=== PATIENT | female | born 2005 | race Hispanic/Latino ===

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

== ENCOUNTER 2025-08-03 11:32 | Emergency (ER) | payer OTHER, SELFPAY ==
[2025-08-03 11:33] VITALS: BP 126/81; PULSE 87; RESP 18; TEMP 36.4; O2SAT 99
[2025-08-03 12:09] LABS: Strep Group A RT-PCR NOT DETECTED (Negative)
[2025-08-03 12:21] VITALS: BP 114/82; PULSE 72; RESP 17; O2SAT 100
[2025-08-03 12:21] LABS: Influenza A QL RT-PCR Negative (Negative); Influenza B QL RT-PCR Negative (Negative); RSV RNA, RT-PCR Negative (Negative); SARS-CoV-2 RNA PCR Negative (Negative)
[2025-08-03 14:42] LABS: Negative Monotest Control Negative (Negative); Positive Monotest Control Positive (Positive)
[2025-08-03 15:00] VITALS: BP 110/80; PULSE 64; RESP 16; O2SAT 100
--- NOTE | 2025-08-03 15:07 | ED.GENADULT ---
HPI - General Adult General Chief complaint: Upper Respiratory Infection Stated complaint: throat pain and swelling, headache, earache Time Seen by Provider: 08/03/25 12:46 History of Present Illness HPI narrative: 20-year-old female present to the emergency department for evaluation for worsening sore throat. Patient reports symptoms started on Thursday have been worsening. Patient does report associated generalized fatigue. Patient does have some anterior lymphadenopathy with this. Patient denies any difficulty breathing or swallowing. Related Data Allergies Allergy/AdvReac Type Severity Reaction Status Date / Time No Known Allergies Allergy Verified 08/03/25 15:17 Review of Systems Review of Systems: All systems reviewed & are unremarkable except as noted in HPI and below PMFSH Surgical History Surgical History (Updated 10/15/21 @ 10:18 by Mila German APRN) S/P hernia surgery H/O heart surgery Social History Social History (Updated 10/15/21 @ 10:19 by Mila German APRN) Living arrangements: with family Occupation/Education: student Gender identity (if verbalized by the patient): Female Exam Narrative: APPEARANCE: Well appearing, no pain, no distress, well-nourished. HEAD: normocephalic, atraumatic. EYES: PERRLA/EOMI, conjunctivae clear. NOSE: Normal no drainage EARS:TMS clear with good light reflex. THROAT: Bilateral enlarged tonsils that are non kissing, normal posterior pharynx, some tonsillar exudate NECK: Supple. No adenopathy, no masses. RESPIRATORY: Airway patent, respirations nonlabored. Clear to auscultation bilaterally, no rales, rhonchi, wheezing. CARDIOVASCULAR: Regular rate and rhythm without murmurs rubs or gallops. ABDOMINAL: Soft, nontender, nondistended, normal bowel sounds MUSCULOSKELETAL: Moves all extremities. Strength/ROM intact, No edema, No calf tenderness. NEURO: Alert. Cranial nerves II through XII intact. Good gait. Good coordination SKIN: Warm, dry. Normal Color Course Vital Signs Vital signs: Vital Signs Temperature 97.6 F 08/03/25 11:33 Pulse Rate 87 08/03/25 11:33 Respiratory Rate 18 08/03/25 11:33 Blood Pressure 126/81 08/03/25 11:33 Pulse Oximetry 99 08/03/25 11:33 Oxygen Delivery Room Air 08/03/25 11:33 Temperature 97.6 F 08/03/25 11:33 Pulse Rate 64 08/03/25 15:00 Respiratory Rate 16 08/03/25 15:00 Blood Pressure 110/80 08/03/25 15:00 Pulse Oximetry 100 08/03/25 15:00 Oxygen Delivery Room Air 08/03/25 12:21 Medical Decision Making MDM Narrative Medical decision making narrative: 20-year-old female presents to the emergency department for evaluation for sore throat and generalized fatigue. Patient was negative for influenza RSV and for COVID, patient was negative for mono. Patient will be started on antibiotics for tonsillitis. Patient was started on Augmentin the emergency department. Patient was treated with a dose of dexamethasone. Patient was updated results of the workup and plan for follow-up with primary care physician. All questions concerns were addressed Differential Diagnosis Differential Diagnosis: Tonsillitis, peritonsillar abscess, posterior pharyngeal abscess Vital Signs Vital Signs: Vital Signs Temperature 97.6 F 08/03/25 11:33 Pulse Rate 87 08/03/25 11:33 Respiratory Rate 18 08/03/25 11:33 Blood Pressure 126/81 08/03/25 11:33 Pulse Oximetry 99 08/03/25 11:33 Oxygen Delivery Room Air 08/03/25 11:33 Temperature 97.6 F 08/03/25 11:33 Pulse Rate 64 08/03/25 15:00 Respiratory Rate 16 08/03/25 15:00 Blood Pressure 110/80 08/03/25 15:00 Pulse Oximetry 100 08/03/25 15:00 Oxygen Delivery Room Air 08/03/25 12:21 Lab Data Lab results reviewed: Yes I reviewed the patient's lab results. Labs: Lab Results 08/03/25 08/03/25 Range/Units 11:36 14:16 Monoscreen Negative (Negative) Influenza A (RT-PCR) Negative (Negative) Influenza B (RT-PCR) Negative (Negative) RSV (RT-PCR) Negative (Negative) SARS-CoV-2 RNA (RT-PCR) Negative (Negative) Group A Strep (PCR) Not detected (Negative) Discharge Plan Discharge Clinical Impression: Acute tonsillitis Patient Disposition: Home Condition: Stable Instructions: Antibiotic Form, Tonsillitis (ED) Additional Instructions: Tylenol and ibuprofen for pain control. Antibiotic as directed until completed. Have close follow-up with your primary care physician. If you have any worsening symptoms then please call or return to the emergency department. Patient Language: [place] Prescriptions: New amoxicillin-pot clavulanate 875-125 mg tablet 1 tablet PO Q12H 7 Days Qty: 14 0RF Follow-up/Referrals: Ishan,MD Bimal [Primary Care Provider, Unknown]
[2025-08-03] MEDS: dexAMETHasone SOD PHOS INJ 10 MG/ML 1 ML VIAL IM (15:29)
--- OUTSIDE RECORDS SUMMARY | 2025-08-03 16:14 | XMS_ITS | Clinical Summary ---
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 Gender Identity Not on file Sexual Orientation Not on file Plan of Treatment Health Maintenance Due Date Last Done Comments Hepatitis C Virus (HCV) Screening 2004 Meningococcal B Immunization (1 of 2 - Standard) 2020 Influenza Immunization (#1) 2025 2004, 1 11/06/2003 SARS-COV-2 Immunization ( season) 2025 Respiratory Syncytial Virus (RSV) Immunization (Adult) (1 - 1-dose 75+ series) 02/28/2079 Hepatitis B Immunization Completed 004, 2004, 2004 Pneumococcal Immunization Combined Aged Out 06/05/2005, 2004, 2004, Additional history exists No longer eligible based on patient's age to complete this topic Measles Mumps Rubella (MMR) Immunization Discontinued 06/07/2008, 03/05/2005 Polio (IPV) Immunization Discontinued 008, 2004, 2004, Additional history exists Varicella Immunization Discontinued 01/30/2009, 2004 DTaP/Tdap/Td Immunization Discontinued 2014, 06/07/2008, 06/05/2005, Additional history exists Meningococcal Immunization (ACWY) Aged Out 05/07/2015 No longer eligible based on patient's age to complete this topic TdaP Immunization Completed 05/07/2015 Hepatitis A Immunization Discontinued 018, 03/02/2006, 10/23/2005 Human Papillomavirus (HPV) Immunization Completed 02/23/2018, 05/07/2015 Rotavirus Immunization Aged Out No lo nger eligible based on patient's age to complete this topic
== END 2025-08-03 15:58 | disposition home or self-care (01) ==
PROVIDERS: Physician Assistant; Emergency Provider Emergency Medicine; PCP Pediatrics
DX: J03.90 Acute tonsillitis, unspecified (principal); Z20.822 Contact with and (suspected) exposure to COVID-19
CPT/HCPCS: 36415; 86308; 87637; 87651; 96372; 99283; A9270; J1100